=== PATIENT | male | born 1985 | race Caucasian/White ===

== ENCOUNTER 2024-10-17 07:38 | Emergency (ER) | payer OTHER, SELFPAY ==
[2024-10-17 07:38] VITALS: BP 142/90; PULSE 84; RESP 20; TEMP 36.6; O2SAT 100; BMI 26.0
--- NOTE | 2024-10-17 07:52 | ED.RN ---
PT STATES APROX 4 WEEKS AGO HE WAS SEEN AT [facility] IN [place] AND DX WITH KIDNEY STOES. PT UNSURE IF HE PASSED ANY. RX 800MG IBUPROPHEN. LAST NIGHT AROUND 1999 PT STARTED HAVING LEFT FLANK PAIN THAT HAS BEEN INCRESING. PT DENIES ANY URINARY SX AND HAS GIVEN A URINE SAMPLE HERE IN HE ED.
--- NOTE | 2024-10-17 08:13 | EX.ED.DYSGE1 ---
HPI History of Present Illness Chief Complaint: Flank Pain Informant: patient and spouse/S.O. Narrative Narrative: Healthy 39-year-old with sudden onset of pain in the left side and abdomen yesterday evening along with nausea no vomiting. Pain is colicky. Feel similar to a kidney stone that he had about a month ago in the same area. He was seen in [place] and had a CT showing a 4 mm stone. No trouble urinating no hematuria. No fevers or chills. No recent injuries. [facility] Medical History (Updated 10/17/24 @ 10:[address] Eddie Ferro MD) Kidney stone Home Medications ?Medication ?Instructions ?Recorded ?Last Taken ?Type ondansetron 8 mg disintegrating 8 mg PO Q8H PRN nausea and 10/17/24 Unknown Rx tablet vomiting #12 tabs oxycodone-acetaminophen 5 mg-325 1 tab PO Q6H PRN PRN Pain 3 days 10/17/24 Unknown Rx mg tablet #12 TABLETS Allergy/AdvReac Type Severity Reaction Status Date / Time No Known Allergies Allergy Verified 10/17/24 07:54 Surgical History History of cholecystectomy Social History Smoking Status: Never smoker ROS ROS ED Constitutional Constitutional ED: Denies chills or fever(s) Eyes Eyes: Denies change in vision or diplopia ENT ENT ED: Denies rhinorrhea or sore throat Cardiovascular Cardiovascular: Denies chest pain or palpitations Respiratory/Chest Respiratory/Chest: Denies cough or dyspnea Gastrointestinal Gastrointestinal: Reports abdominal pain and nausea; Denies diarrhea or vomiting Genitourinary Genitourinary ED: Denies dysuria or hematuria Musculoskeletal Musculoskeletal: Denies back pain or neck pain Integumentary Denies abscess or rash Neurologic Neurologic: Denies headache(s), paresthesias or weakness Psychiatric Psychiatric: Denies anxiety or suicidal thoughts EXAM Physical Exam Const Vital Signs: 10/17/24 07:38 10/17/24 09:38 Temperature 97.8 F Temperature Source Temporal Pulse Rate 84 77 Respiratory Rate 20 H 16 Blood Pressure 142/90 H 125/84 H Blood Pressure Mean 107 97 Pulse Ox 100 98 Oxygen Delivery Method Room Air Room Air Positive well nourished and well developed Constitutional Narrative: Uncomfortable and in pain but no distress General Appearance ED: well developed and NAD HEENT Reports moist mucous membranes normocephalic and atraumatic Eyes PERRL and EOMs intact bilaterally Neck full ROM and supple Resp normal respiratory effort and clear to auscultation bilaterally Cardio regular rate, regular rhythm and no murmurs GI non-tender and non-distended Auscultation: normoactive bowel sounds Palpation: soft Back/Spine no CVA tenderness General Back: other FROM Extremity normal to inspection General Extremety ED: Negative for edema, pulses abnormal or tenderness General Extremity: Negative for edema or pulses abnormal Neuro oriented x3, CN's II-XII intact bilaterally and no sensory deficits noted Sensorium / Orientation: awake and alert Motor Exam: strength 5/5 throughout Skin no rashes or lesions noted and no wounds MDM MDM MDM Narrative Medical decision making narrative: Patient has CT from last month showing a 4 mm left ureteral stone, this is in the right position to cause his symptoms that he has now, he confirms that he never passed a stone that he knows of. Given all this I do not think he needs a repeat CT. Given him Toradol, Zofran, morphine, he is feeling much better and asymptomatic. Will give him urine strainers to go home with, and follow-up with urology if it has been a month and this 4 mm stone has not yet passed. He is comfortable with outpatient symptom control and follow-up. We discussed reasons to return History & Record Review Additional record(s) reviewed:: Prior outpatient record (CT from last month report showing a 4 mm left mid ureteral stone with mild left hydronephrosis and no other abnormalities such as nephrolithiasis. There is a 0.7 cm right hepatic lobe hypoattenuating lesion that was too small to characterize.) Lab Data Attestation: I reviewed the patient's lab results. Labs: Laboratory Results - last 24 hr 10/17/24 07:55 Urine Color Yellow Urine Clarity Clear Urine pH 6.0 Ur Specific [place] 1.010 Urine Protein Negative Urine Glucose (UA) Normal Urine Ketones Negative Urine Occult Blood Negative Urine Nitrite Negative Urine Bilirubin Negative Urine Urobilinogen Normal Ur Leukocyte Esterase Negative Urine RBC 0-5 SEEN Urine WBC 0-5 SEEN Ur Squamous Epith Cells 0 SEEN Urine Bacteria 0 SEEN Urine Mucus 0 SEEN Discharge Plan Triage Chief Complaint: Flank Pain ED Provider: Eddie Ferro Dx/Rx/DC Orders Clinical Impression: Urolithiasis, Ureteral colic Instructions: ED Urine Strainer, ED Kidney Stone with Pain Prescriptions: New ondansetron 8 mg tablet,disintegrating 8 mg PO Q8H PRN (Reason: nausea and vomiting) Qty: 12 0RF oxycodone-acetaminophen 5-325 mg tablet 1 tab PO Q6H PRN PRN (Reason: Pain) 3 Days Qty: 12 0RF Primary Care Provider: Keaton Rodriguez Referrals: Kiet Wolfe MD [Med Staff - Active Staff] - As soon as possible (unless you pass stone) Print Language: Spanish Disposition Disposition: Home, Self Care
[2024-10-17 08:29] LABS: Bacteria 0 SEEN /hpf (None Seen); Mucous, Urine 0 SEEN /hpf (<or=2+); Squamous Epithelial Cells - UA 0 SEEN /hpf (0-5)
[2024-10-17] MEDS: Ondansetron 4 MG/2 ML Vial IV (08:29)
[2024-10-17] MEDS: Ketorolac 30 MG/ML Syringe IV (08:29)
[2024-10-17] MEDS: Morphine 4 MG/ML Syringe IV (08:29)
[2024-10-17 08:34] LABS: Color, Urine Yellow (Yellow); Glucose, Dipstick Normal (Normal); Ketone-Dipstick Negative (Negative); Leukocyte Esterase-Dipstick Negative /ul (Negative); Nitrite-Dipstick Negative (Negative); Occult Blood-Urine Negative /ul (Negative); Protein-Dipstick Negative (Negative); Urine Bilirubin Dipstick Negative (Negative); Urine Clarity Clear (Clear); Urine Urobilinogen Normal (Normal)
[2024-10-17 09:38] VITALS: BP 125/84; PULSE 77; RESP 16; O2SAT 98
[2024-10-17 09:59] LABS: Red Blood Cells-Urine 0-5 SEEN /hpf (0-5); White Blood Cells 0-5 SEEN /hpf (0-5)
[2024-10-17 10:07] VITALS: BP 129/87; PULSE 81; RESP 16; TEMP 36.8; O2SAT 97
== END 2024-10-17 10:20 | disposition home or self-care (01) ==
PROVIDERS: Emergency Provider Emergency Medicine; PCP Physician Assistant; Visit Provider Emergency Medicine
DX: R10.9 Unspecified abdominal pain (principal); N20.9 Urinary calculus, unspecified; N36.8 Other specified disorders of urethra; Z90.49 Acquired absence of other specified parts of digestive tract
CPT/HCPCS: 81001; 96374; 96375; 99283; A4216; J2405

== ENCOUNTER → 2024-10-21 | Outpatient (CLI) | payer SELFPAY, OTHER ==
--- NOTE | 2024-10-21 08:40 | RAD_ITS ---
PROCEDURE: ABDOMEN SINGLE VIEW REASON FOR EXAM: Calculus of ureter TECHNIQUE: Single view abdomen. 2 total AP views to include the entire abdomen and pelvis COMPARISON: None FINDINGS: Bowel gas pattern appears within limits. Visualized lung bases appear clear. Small calcific density to the left of the L4 vertebral body may represent mid left ureteral stone. A few bilateral pelvic phleboliths incidental. The bones are unremarkable. RAD/Abdomen Single View IMPRESSION: Small calcific density to the left of the L4 vertebral body may represent mid l eft ureteral stone. Correlate with history. Reading Location: [id number]
== END | disposition home or self-care (01) ==
PROVIDERS: PCP Physician Assistant; Referring Provider Urology; Visit Provider Urology
DX: N20.1 Calculus of ureter (principal)
CPT/HCPCS: 74018

== ENCOUNTER 2024-10-22 08:25 | Day surgery (SDC) | payer SELFPAY, OTHER ==
[2024-10-22] VITALS (11 sets, daily range): BP systolic 119–129; BP diastolic 81–101; PULSE 52–81; RESP 16–17; TEMP 36.1–36.6; O2SAT 98–100; BMI 26.9
--- NOTE | 2024-10-22 09:17 | PCM.HP.STD ---
HPI - General General Date of Service: 10/22/24 Chief Complaint: Left ureteral stone HPI Narrative KACEY RADFORD, is a 39 M who presents for treatment for stone in the left ureter with shockwave lithotripsy [facility] Medical History (Updated 10/21/24 @ 14:39 by Jeannine Stauffer) Wears glasses Non-smoker Kidney stone Home Medications ?Medication ?Instructions ?Recorded ?Last Taken ?Type ondansetron 8 mg disintegrating 8 mg PO Q8H PRN nausea and 10/17/24 10/21/24 Rx tablet vomiting #12 tabs oxycodone-acetaminophen 5 mg-325 1 tab PO Q6H PRN PRN Pain 3 days 10/17/24 10/21/24 Rx mg tablet #12 TABLETS Allergy/AdvReac Type Severity Reaction Status Date / Time No Known Allergies Allergy Verified 10/22/24 08:51 Surgical History (Updated 10/21/24 @ 14:39 by Jeannine Stauffer) History of cholecystectomy Social History Smoking Status: Never smoker Vital Signs Vital Signs Vital Signs: 10/22/24 08:51 10/22/24 08:51 Temperature 97.8 F Temperature Source Temporal Pulse Rate 68 Respiratory Rate 17 Respiratory Pattern Normal Blood Pressure 119/81 H Blood Pressure Mean 93 Blood Pressure Source Monitor Blood Pressure Position Semi-Fowlers Blood Pressure Location Left Arm Pulse Ox 98 Oxygen Delivery Method Room Air Weight Weight: 75.6 kg Body Mass Index (BMI) 26.9
--- NOTE | 2024-10-22 09:17 | PCM.DC ---
Discharge Instructions Diet Discharge Diet: No restrictions DC O2, CPAP, BIPAP needs Home O2 Discharge instructions: No Dressing / Incision Discharge Activity: Return to Normal Activity and May Not Drive (while taking narcotic pain medications.) Dressing / Incision Call your doctor if you observe: Fever of 101 or Higher Follow Up Care Please Follow Up With: Kiet Wolfe MD When: Call [phone] for an appointment Test Results: Test results from this visit will be discussed in further detail at your follow-up appointment, if applicable. Discharge Plan Admission Attending Provider: Kiet Wolfe Primary Care Provider: Keaton Rodriguez Instructions Print Language: Armenian Discharge Orders/Prescriptions Prescriptions: No Action ondansetron 8 mg tablet,disintegrating 8 mg PO Q8H PRN (Reason: nausea and vomiting) Qty: 12 0RF oxycodone-acetaminophen 5-325 mg tablet 1 tab PO Q6H PRN PRN (Reason: Pain) 3 Days Qty: 12 0RF Referrals / Follow Up: Keaton Rodriguez PA [Primary Care Provider] - Disposition Disposition (needs filled in before D/C Order can be placed): Home, Self Care
--- NOTE | 2024-10-22 09:20 | PRE.ANES_ITS ---
ASA Classification* ASA Classification ASA Classification: 1 Assessment & Plan Anesthesia* Anesthesia Assessment Anesthesia Assessment: Discussed sedation and/or anesthesia options, risks, benefits, and alternatives with patient/parents/legal guardian/POA. Questions invited. The patient/parents/legal guardian/POA seems to understand and agrees to proceed with anesthesia plan. Reviewed the physical assessment, medical history, allergy history and patient home medications list prior to surgery/procedure/anesthetic and documented any changes. Performed airway and anesthesia risk assessments. Anesthesia Type Anesthesia Type: General History Source History Obtained from:: Patient and Chart Anesthesia Focused Assessment* Temperature: 97.8 F Pulse Rate: 68 Blood Pressure: 119/81 Respiratory Rate: 17 Pulse Ox: 98 Oxygen Delivery Method: Room Air Airway Assessment Mouth opens: >3 cm Mallampati Score: III Teeth Condition: Missing (Missing 1 right lower molar. 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 When Was Last Pacemaker Check QUESTION #4 FULL TEXT: You/Your Family Experience fever (hyperthermia) with Anesthesia Last Oral Intake Last Oral intake: Last Oral Intake NPO since 00:00 10/22/24 08:51 Meds taken in AM with sips of No 10/22/24 08:51 water? Meds patient instructed to take am of surgery PONV PONV - oil house attendant: PONV - oil house attendant Female No 10/21/24 14:34 HX of Motion Sickness No 10/21/24 14:34 HX of N/V After Surgery No 10/21/24 14:34 Non-Smoker Yes 10/21/24 14:34 Duration of Surgery greater Yes 10/21/24 14:34 than 60 minutes Number of Risk Factors 2 10/21/24 14:34 PONV Score Moderate Risk 10/21/24 14:34 Height & Weight Height & Weight: Anesthesia: Height & Weight Height 5 ft 6 in 10/22/24 08:51 Weight: 75.6 kg 10/22/24 08:51 Body Mass Index (BMI) 26.9 10/22/24 08:51 Respiratory Assessment Respiratory Assessment - oil house attendant: Respiratory Tract Infection Hx - oil house attendant Hx Respiratory Tract Infection No 10/21/24 14:34 STOP Sleep Apnea STOP Sleep Apnea - oil house attendant: STOP Sleep Apnea - oil house attendant Hx Hypertension No 10/21/24 14:34 Hx Sleep Apnea No 10/21/24 14:34 CPAP BIPAP Do you snore loudly (louder Yes 10/21/24 14:34 than talking or can be heard Do you often feel tired/ No 10/21/24 14:34 fatigued/ sleepy during daytime? Has anyone observed you stop No 10/21/24 14:34 breathing during sleep? STOP Results Negative 10/21/24 14:34 QUESTION #5 FULL TEXT : Do you snore loudly (louder than talking or can be heard through closed doors)? 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 Specify any problems Hx of Preganancy in last 3 N/A 10/21/24 14:34 Months Nurse Filling Out Transfusion DSCHRIBER 10/21/24 14:34 & Questions: Date: 10/21/24 10/21/24 14:34 Time: 14:35 10/21/24 14:34 Patient unable to answer at this time (ie. confused, unrespo /Reproduction History /Reproductive History - oil house attendant: /Reproductive Hx- oil house attendant Hx Now No 10/21/24 14:34 Gestational Age (in weeks): EDC: Hx Hx Para Hx Section SAB No 10/21/24 14:34 Active Medications Active Medications: Current Medications Generic Name Dose Route Start Last Admin Trade Name Freq PRN Reason Stop Dose Admin Sodium Chloride 1,000 mls @ 15 mls/hr 10/22/24 08:40 IV 10/27/24 21:59 .Q48H JEFFERSON Protocol Lactated Ringer's 1,000 mls @ 100 mls/hr 10/22/24 09:30 IV 10/23/24 05:29 .Q10H JEFFERSON Protocol Ketorolac Tromethamine 15 mg 10/22/24 09:18 Ketorolac 15 Mg/Ml Vial IV 10/22/24 09:19 X1 ONE Metoclopramide HCl 10 mg 10/22/24 09:18 Metoclopramide 10 Mg/2 Ml Vial IV X1 PRN NAUSEA/VOMITING Ondansetron HCl 4 mg 10/22/24 09:18 Ondansetron 4 Mg/2 Ml Vial IV X1 PRN NAUSEA Oxycodone HCl 5 - 10 mg 10/22/24 09:18 Oxycodone 5 Mg Tablet PO Q6H PRN PRN Pain Score 4-10 PFSH Medical History Wears glasses Non-smoker Kidney stone Home Medications ?Medication ?Instructions ?Recorded ?Last Taken ?Type ondansetron 8 mg disintegrating 8 mg PO Q8H PRN nausea and 10/17/24 10/21/24 Rx tablet vomiting #12 tabs oxycodone-acetaminophen 5 mg-325 1 tab PO Q6H PRN PRN Pain 3 days 10/17/24 10/21/24 Rx mg tablet #12 TABLETS Allergy/AdvReac Type Severity Reaction Status Date / Time No Known Allergies Allergy Verified 10/22/24 08:51 Surgical History History of cholecystectomy Social History Smoking Status: Never smoker Review of Systems (Anesthesia) ROS Narrative System reviewed and no additional complaints, except as documented.
[2024-10-22] MEDS: Cefazolin 2 GM in Syringe IV (10:11)
--- NOTE | 2024-10-22 10:56 | PCM.OPRPT ---
Operative Report (Standard) Operative Information Date of Procedure: 10/22/24 Pre-Operative Diagnosis: Left ureteral calculi Post-Operative Diagnosis: The same Surgery/Procedure Performed: Left extracorporeal shockwave lithotripsy landing signal officer: No Type of Anesthesia: General RN Documented Start/Stop Times: Operation Date: 10/22/24 10:30 Case Time Into Pre-Op 10/22/24 08:36 Out of Pre-Op 10/22/24 10:05 Anesthesia Start 10/22/24 10:11 Into Room 10/22/24 10:11 Procedure Start 10/22/24 10:19 Procedure Start Time: 10:19 Procedure Stop Time: 10:56 Select all DRAINS/GRAFTS/IMPLANTS that apply: None Estimated Blood Loss: 0 Specimen collected: No Description of surgery: Patient presents to the hospital for treatment of a kidney stone with shockwave lithotripsy. In the preoperative area and x-ray was done to confirm the location of the stone. The x-ray was reviewed and the stone location was reviewed. In the preoperative setting I spoke with the patient regarding the treatment of the stone how the treatment would be conducted and the expectations after surgery. The patient understands there is a risk of bleeding and infection. Also discussed the very rare risk of hematoma or damage to the kidney. We also discussed the risk that the shockwave machine will fail to break the stone adequately and that the patient may need other surgical procedures. I also discussed the possibility that the patient may need a stent after the procedure. After reviewing the procedure with the patient, the patient is signed the consent form all the patient's questions were addressed and was taken back to the operating room for treatment of a kidney stone. Patient was taken back to the operating room, the patient was identified by the nursing staff, I identified the side of the treatment and the patient side of treatment had been marked by my initials. The patient underwent general anesthetic and was placed supine on the lithotripter table. I then used fluoroscopy to identify the stone on the left mid ureter. I then positioned the patient under the lithotripter and I used triangulation technique to identify the location of the stone and then I made sure that the stone was engaged in the F2 focal point of F2 Donier lithoprior machine. Once the patient was positioned appropriately and the stone was identified and placed in the F2 focal point of the lithotripter machine I then proceeded with shockwave lithotripsy. In the beginning the shockwave was delivered at a rate of 90 shocks per minute, anesthesia monitored the EKG for any ectopy. The power was slowly increased to 5 kV and subsequently at the 7 kV. I then proceeded with the treatment with shock wave therapy and around during the treatment to make sure the stone stayed in the F2 focal point during the entire treatment and after 4000 shockwaves were delivered to the stone under fluoroscopic guidance the treatment was completed. The patient was given instructions to call the office to make an a follow-up appointment with an xray to evaluate the success of the treatment, pateint understands that its possible the stones may need another procedure.At this point the patient's anesthetic was reversed patient was extubated and taken back to the PACU in stable condition. Surgical Findings: Stone in mid left ureter treated with shockwave lithotripsy Complications Complications: No Admit VTE Documentation VTE Present on Admission: No VTE Mechan Device Prophylaxis: SCD's VTE Pharm Prophylaxis ordered?: No
[2024-10-22] MEDS: Ketorolac 15 MG/ML Vial IV (11:41)
[2024-10-22] MEDS: Lactated Ringers 1,000 ML 100 ML IV (11:41)
--- NOTE | 2024-10-22 16:25 | PCM.POST.ANE ---
Anesthesia: Postop Eval I Current Vital Signs Temperature: 98 F Pulse Rate: 81 Blood Pressure: 124/81 Respiratory Rate: 16 Pulse Ox: 98 Assessment Airway patent: Yes Spontaneous unlabored respirations: Yes nausea: No Vomiting: No Anesthesia Complication: No Fluid Hydration Crystalloid volume administer (ml): 500 Total IV fluid infused: 500 Progress Note Anesthesia document: Postop Eval 1 completed: Yes
--- NOTE | 2024-10-22 16:26 | POSTOPAN2_ITS ---
Anesthesia Postop Eval I Sum Postop Eval Completion status Anesthesia document: Postop Eval 1 completed: Yes Anesthesia Postop Eval I Summary Anesthesia Postop Eval I Summary: Anesthesia Postop Eval I: Assessment Summary Airway patent Yes 10/22/24 16:25 TRACKLESS [email or web address] [email or web address] Spontaneous unlabored Yes 10/22/24 16:25 TRACKLESS TROLLEY DRIVER.[email or web address] respirations Mental status nausea No 10/22/24 16:25 TRACKLESS TROLLEY DRIVER.[email or web address] Vomiting No 10/22/24 16:25 TRACKLESS [email or web address] [email or web address].[email or web address] Anesthesia Postop Eval I: Fluid Summary Crystalloid volume administer 500 10/22/24 16:25 TRACKLESS TROLLEY [email or web address].[email or web address] (ml) Colloids volume administered ( ml) Blood Product volume administered (ml) Total IV fluid infused 500 10/22/24 16:25 TRACKLESS [email or web address] [email or web address].[email or web address] Anesthesia Postop Eval I: Summary Notes Anesthesia Complication No 10/22/24 16:25 TRACKLESS [email or web address] [email or web address].[email or web address] Anesthesia Complication Comment: Post-operative progress note Anesthesia: Postop Eval II Evaluation Mental status: Awake and Calm Pain Level: 1 nausea: No Vomiting: No Complications Anesthesia Complication: No
--- NOTE | 2024-10-22 16:26 | PCM.POSTANE2 ---
Anesthesia Postop Eval I Sum Postop Eval Completion status Anesthesia document: Postop Eval 1 completed: Yes Anesthesia Postop Eval I Summary Anesthesia Postop Eval I Summary: Anesthesia Postop Eval I: Assessment Summary Airway patent Yes 10/22/24 16:25 WINDOW GLASS CUTTER OFF.[email or web address] Spontaneous unlabored Yes 10/22/24 16:25 WINDOW GLASS CUTTER OFF.TNES respirations Mental status nausea No 10/22/24 16:25 WINDOW GLASS CUTTER OFF.TNES Vomiting No 10/22/24 16:25 WINDOW GLASS CUTTER OFF.TNES Anesthesia Postop Eval I: Fluid Summary Crystalloid volume administer 500 10/22/24 16:25 WINDOW GLASS CUTTER OFF.TNES (ml) Colloids volume administered ( ml) Blood Product volume administered (ml) Total IV fluid infused 500 10/22/24 16:25 WINDOW GLASS CUTTER OFF.[email or web address] Anesthesia Postop Eval I: Summary Notes Anesthesia Complication No 10/22/24 16:25 WINDOW GLASS CUTTER OFF.TNES Anesthesia Complication Comment: Post-operative progress note Anesthesia: Postop Eval II Evaluation Mental status: Awake and Calm Pain Level: 1 nausea: No Vomiting: No Complications Anesthesia Complication: No
== END 2024-10-22 13:04 | disposition home or self-care (01) ==
LOC: SDC 08:26 → AC 08:27
PROVIDERS: PCP Physician Assistant; Referring Provider Urology; Visit Provider Urology
PROC: (CPT 50590; principal; 2024-10-22 10:20)
DX: N20.1 Calculus of ureter (principal)
CPT/HCPCS: 50590; 00873; J2405